=== PATIENT | female | born 1955 | race Caucasian/White ===

== ENCOUNTER 2023-02-27 06:37 | Emergency (ER) | payer MEDICARE, BC ==
[~2023-02-27] VITALS: Ht 157.5 cm; Wt 72.6 kg
[2023-02-27 06:43] VITALS: BP 181/81; PULSE 91; RESP 18; TEMP 99.1; O2SAT 98
[2023-02-27 07:13] LABS: CLARITY,URINE CLOUDY (Clear); COLOR,URINE YELLOW (Yellow); GLUCOSE, URINE NEGATIVE (Neg); KETONES,URINE NEGATIVE (Neg); LEUKOCYTE ESTERASE ,URINE LARGE (Neg); NITRITES, URINE POSITIVE (Neg); OCCULT BLOOD,URINE MODERATE (Neg); PH,URINE 6.5 (4.8-8.0); PROTEIN,URINE >=300 mg/dl (Neg); UROBILINOGEN,URINE 0.2 E.U/dL (0.2-1.0)
[2023-02-27 07:17] LABS: UA COLLECTION TYPE CLN CATCH MIDSTREAM
[2023-02-27 07:20] LABS: MUCUS STRANDS FEW /LPF (Neg); SQUAMOUS EPITHELIAL CELL,UR FEW /LPF (FEW)
[2023-02-27 07:22] LABS: WBC CLUMPS,URINE MODERATE /HPF (NEGATIVE); WBC,URINE TNTC /HPF (0-4)
[2023-02-27 07:23] LABS: BACTERIA,URINE 1+ /HPF (Neg); RBC,URINE 50-100 /HPF (0-2)
[2023-02-27] MEDS ORDERED: phenazopyridine 100mg tablet PO ONE ×2 (08:10→08:30)
[2023-02-27] MEDS ORDERED: LEVO-65 PO (08:20)
[2023-02-27] MEDS ORDERED: PHEN-824 PO (08:20)
== END 2023-02-27 08:38 | disposition home or self-care (01) ==
LOC: ER 06:37
DX: N39.0 Urinary tract infection, site not specified (principal); Z88.5 Allergy status to narcotic agent; Z79.899 Other long term (current) drug therapy
CPT/HCPCS: 81001; 87077; 87088; 87186; 99283